=== PATIENT | male | born 1995 | race Caucasian/White ===

== ENCOUNTER → 2016-07-11 | Outpatient (CLI) | payer OTHER ==
--- NOTE | 2016-07-11 16:32 | US ---
Ultrasound Extremity Nonvascular, Right Inguinal History: Palpable abnormality, lymph node versus hernia. Findings: Ultrasound imaging in the right groin area of palpable concern demonstrates a benign-appea ring lymph node, measuring 9 x 5 x 4 mm. No evidence of inguinal hernia. Impression: Benign right groin lymph node, measuring 9 x 5 x 4 mm.
== END ==
LOC: BMCIMAGING 11:44
PROVIDERS: ATTEND Internal Medicine
DX: R19.01 Right upper quadrant abdominal swelling, mass and lump (principal)